=== PATIENT | female | born 1980 | race Caucasian/White ===

== ENCOUNTER → 2019-05-31 | Outpatient (CLI) | payer OTHER ==
--- NOTE | 2019-05-31 08:11 | US ---
EXAMINATION TYPE: US venous doppler duplex LE LT DATE OF EXAM: 05/31/2019 7:54 AM COMPARISON: NONE CLINICAL HISTORY: M79.89pain in lt foot M79.662 Pain in lt calf. SIDE PERFORMED: Left TECHNIQUE: The lower extremity deep venous system is examined utilizing real time linear array sonog lenny with graded compression, doppler sonography and color-flow sonography. VESSELS IMAGED: External Iliac Vein (EIV) Common Femoral Vein Deep Femoral Vein Greater Saphenous Vein * Femoral Vein Popliteal Vein Small Saphenous Vein * Proximal Calf Veins (* superficial vessels) Grayscale, color doppler, spectral doppler imaging performed of the deep veins of the left lower extr emity. There is normal flow, compressibility, vascular waveforms. Left Leg: Negative for DVT IMPRESSION: No sonographic evidence of deep venous arthrosis within the left lower extremity.
== END | disposition home or self-care (01) ==
LOC: RADUSWWP 07:29
PROVIDERS: ATTEND Family Medicine
DX: M79.672 Pain in left foot (principal); M79.662 Pain in left lower leg; M79.89 Other specified soft tissue disorders